=== PATIENT | male | born 1985 | race African-American/Black ===

== ENCOUNTER 2018-05-16 19:57 | Emergency (ER) | payer MEDICARE, OTHER ==
--- NOTE | 2018-05-16 21:00 | ER Document Report ---
ED General - General Chief Complaint: Psych Problem Stated Complaint: PSYCH EVAL Time Seen by Provider: 05/16/18 20:29 TRAVEL OUTSIDE OF THE [place] IN LAST 30 DAYS: No - HPI Notes: Patient is a 32-year-old male that presents to the emergency department for chief complaint of violent behavior. Patient has schizophrenia and lives at a snf out of town. He is in town visiting family for a [facility] home visit. Patient's father states that tonight he had a violent episode. Patient was running up and down the street stating that he loved Hitler. Patient was banging on rachel and yelling violently. He did not make any direct threats that a family member. He has not expressed any suicidal ideation. Patient has been compliant with his home medications. His father states that when he is on home visits it is not infrequent for him to have outbursts. Father states that they did not feel safe at home because of him being so aggressively on the doors. Patient is currently calm and cooperative. He has no complaints. He states that he had an episode but is feeling much better now. Past Medical History: Schizophrenia, diabetes, hypertension, mild MR Past Surgical History: Negative Social History: Denies drugs alcohol and tobacco Family History: Reviewed and noncontributory for presenting illness Allergies: Reviewed, see documented allergy list. REVIEW OF SYSTEMS: CONSTITUTIONAL : No fever No chills No diaphoresis No recent illness EENT: No vision changes No congestion No sore throat CARDIOVASCULAR: No chest pain No palpitations RESPIRATORY: No shortness of breath No cough No difficulty breathing GASTROINTESTINAL: No abdominal pain No nausea No vomiting No diarrhea GENITOURINARY: No dysuria No hematuria No difficulty urinating MUSCULOSKELETAL: No back pain No leg pain No arm pain SKIN: No rashes No lesions LYMPHATIC: No swollen, enlarged glands. NEUROLOGICAL: No lightheadedness No headache No weakness No paresthesias PSYCHIATRIC: No anxiety No depression Violent behavior PHYSICAL EXAMINATION: Vital signs reviewed, nursing noted reviewed. GENERAL: Well-appearing, obese and in no acute distress. HEAD: Atraumatic, normocephalic. EYES: Eyes appear normal, extraocular movements intact, sclera anicteric, conju nctiva are normal. ENT: nares patent, oropharynx clear without exudates. Moist mucous membranes. NECK: Normal range of motion, supple without lymphadenopathy LUNGS: Breath sounds clear to auscultation bilaterally and equal. No wheezes rales or rhonchi. HEART: Regular rate and rhythm without murmurs ABDOMEN: Soft, nontender, normoactive bowel sounds. No rebound, guarding, or rigidity. No masses appreciated. EXTREMITIES: Nontender, good range of motion, no pitting or edema. NEUROLOGICAL: No focal neurological deficits. Moves all extremities spontaneously Motor and sensory grossly intact on exam. PSYCH: Normal mood, normal affect. Cooperative SKIN: Warm, Dry, normal turgor, no rashes or lesions noted on exposed skin - Related Data Allergies/Adverse Reactions: No Known Allergies Allergy (Verified 11/07/14 21:03) Past Medical History - Social History Smoking Status: Unknown if Ever Smoked Chew tobacco use (# tins/day): No Family History: Reviewed & Not Pertinent Patient has suicidal ideation: No Patient has homicidal ideation: No Renal/ Medical History: Denies: Hx Peritoneal Dialysis Psychiatric Medical History: Reports: Hx Anxiety, Hx Bipolar Disorder, Hx Depression, Hx Personality Disorder, Hx Schizophrenia Past Surgical History: Reports: Hx Orthopedic Surgery - knee - Immunizations Hx Diphtheria, Pertussis, Tetanus Vaccination: Yes Physical Exam - Vital signs Vitals: Temp Pulse Resp BP Pulse Ox 98.3 F 74 22 H 128/79 H 97 05/16/18 20:05 05/16/18 20:05 05/16/18 20:05 05/16/18 20:05 05/16/18 20:05 Course - Re-evaluation Re-evalutation: 05/16/18 20:59 Vitals reviewed. Nursing notes reviewed. Patient is resting comfortably and in no acute distress. He is cooperative with myself and staff. He states he is currently feeling much better. He is not requiring any further medication. He did take all of his home evening medications prior to coming into the ER. 05/16/18 21:36 Patient's lab work is unremarkable. He is still calm and in no acute distress. Patient's family does not feel safe with him returning home because of his violent outbursts. He will be monitored in the emergency room tonight and evaluated by psych in the morning. Patient is in agreement with this plan currently. Laboratory 05/16/18 05/16/18 21:00 21:00 WBC 6.4 RBC 4.78 Hgb 13.1 L Hct 39.8 MCV 83 MCH 27.4 MCHC 33.0 RDW 15.4 H Plt Count 150 Seg Neutrophils % 63.0 Lymphocytes % 26.8 Monocytes % 7.2 Eosinophils % 2.3 Basophils % 0.7 Absolute Neutrophils 4.0 Absolute Lymphocytes 1.7 Absolute Monocytes 0.5 Absolute Eosinophils 0.1 Absolute Basophils 0.0 Sodium 141.5 Potassium 4.4 Chloride 104 Carbon Dioxide 29 Anion Gap 9 BUN 10 Creatinine 0.65 Est GFR ( Amer) > 60 Est GFR (Non-Af Amer) > 60 Glucose 100 Calcium 9.6 Total Bilirubin 0.4 Direct Bilirubin 0.4 Neonat Total Bilirubin Not Reportable Neonat Direct Bilirubin Not Reportable Neonat Indirect Bili Not Reportable AST 36 ALT 31 Alkaline Phosphatase 93 Total Protein 7.4 Albumin 4.2 Salicylates < 1.0 L Acetaminophen < 10 L Serum Alcohol < 10 - Vital Signs Vital signs: Temp Pulse Resp BP Pulse Ox 98.3 F 74 22 H 128/79 H 97 05/16/18 20:05 05/16/18 20:05 05/16/18 20:05 05/16/18 20:05 05/16/18 20:05 - Laboratory Result Diagrams: 05/16/18 21:00 05/16/18 21:00 Laboratory results interpreted by me: 05/16/18 05/16/18 21:00 21:00 Hgb 13.1 L RDW 15.4 H Salicylates < 1.0 L Acetaminophen < 10 L - EKG Interpretation by Me Additional EKG results interpreted by me: 05/16/18 21:05 Interpreted by myself 06/26/2001: Normal sinus rhythm, rate 71, normal axis, no ectopy, no ST elevation Discharge - Discharge Clinical Impression: Violent behavior Condition: Stable Disposition: PSYCH HOSP/UNIT
[2018-05-16 21:08] LABS: ABSOLUTE EOSINOPHILS # (AUTO) 0.1 10^3/uL (0.0-0.6); ABSOLUTE LYMPHOCYTES (AUTO) 1.7 10^3/uL (0.5-4.7); ABSOLUTE MONOCYTES (AUTO) 0.5 10^3/uL (0.1-1.4); BASOPHILS % (AUTO) 0.7 % (0-2); EOSINOPHILS % (AUTO) 2.3 % (0-6); HEMATOCRIT 39.8 % (37.9-51.0); HEMOGLOBIN 13.1 g/dL (13.5-17.0); LYMPHOCYTES % (AUTO) 26.8 % (13-45); MEAN CORPUSCULAR HEMOGLOBIN 27.4 pg (27.0-33.4); MEAN CORPUSCULAR VOLUME 83 fl (80-97); MONOCYTES % (AUTO) 7.2 % (3-13); PLATELET COUNT 150 10^3/uL (150-450); RED BLOOD COUNT 4.78 10^6/uL (4.35-5.55); RED CELL DISTRIBUTION WIDTH 15.4 % (11.5-14.0); TOTAL CELLS COUNTED % (AUTO) 100 %; WHITE BLOOD COUNT 6.4 10^3/uL (4.0-10.5)
[2018-05-16 21:25] LABS: ALANINE AMINOTRANSFERASE 31 U/L (21-72); ALBUMIN 4.2 g/dL (3.5-5.0); ALKALINE PHOSPHATASE 93 U/L (38-126); ANION GAP 9 (5-19); ASPARTATE AMINO TRANSFERASE 36 U/L (17-59); BILIRUBIN,DIRECT 0.4 mg/dL (0.0-0.4); BILIRUBIN,TOTAL 0.4 mg/dL (0.2-1.3); BLOOD UREA NITROGEN 10 mg/dL (7-20); CALCIUM 9.6 mg/dL (8.4-10.2); CARBON DIOXIDE 29 mmol/L (22-30); CHLORIDE 104 mmol/L (98-107); GLUCOSE 100 mg/dL (75-110); POTASSIUM 4.4 mmol/L (3.6-5.0); SODIUM 141.5 mmol/L (137-145); TOTAL PROTEIN 7.4 g/dL (6.3-8.2)
[2018-05-16 21:26] LABS: ACETAMINOPHEN < 10 ug/mL (10-30); ALCOHOL < 10 mg/dL (NONE DETECTED); SALICYLATE < 1.0 mg/dL (2.0-20.0)
[2018-05-16] MEDS ORDERED: IBUPROFEN 600 MG TABLET PO PRN (23:36)
--- NOTE | 2018-05-17 07:36 | EKG REPORT ---
SEVERITY:- NORMAL ECG - SINUS RHYTHM : Confirmed by: Cedrick Alvarado MD 17-May-2018 07:36:07
[2018-05-17] MEDS ORDERED: SIMVASTATIN 10 MG TABLET PO SCH (10:00)
[2018-05-17] MEDS ORDERED: (PENDING PHARMACY ID) (Simvastatin [Simvastatin] 20 MG) PO SCH (10:00)
[2018-05-17] MEDS: HALOPERIDOL 5 MG TABLET PO SCH ×2 (11:53→18:20)
[2018-05-17] MEDS: PROPRANOLOL HCL 10 MG TABLET PO SCH ×2 (11:53→18:21)
--- NOTE | 2018-05-17 17:02 | PSYCHOLOGICAL NOTE ---
Psych Note - Psych Note Date seen by psych provider: 05/17/18 Time seen by psych provider: 07:40 Psych Note: Reason for Visit: Violent Behavior Contact Permission: Andres Ku [phone] Left message [phone] Patient is a 32 yo male presenting to the ED after a behavioral episode at home in which he was yelling and banging on doors. Pt was previously seen in the ED x5 in 2015 for OD, SI and poorly managed Schizophrenia. Chart review shows that patient's visits ceased after APS call made due to parent/guardian abandonment of patient at [facility]. Today, per pt. he was remembering a fight with his brother from the past and left an angry VM on his brothers phone about being like Hitler and killing all parts manager. He reports that he was thinking about a time in which law enforcement were yelling at him and not treating him with respect. He reports not being able to calm himself and banging on doors and yelling. Per pt. he was unable to calm himself so his father brought him to the ED to help him calm down. "I need respite to help me calm down". Pt. shares that he has been living in a alf for two years and 1x/mo has behavioral episodes at the alf. There, he utilizes meditation and talking with [place] the supervisor [employer]. At home, where he has been the last two days for the holidays, pt identifies his biological mother in [place] and foster mom in [place] as his primary supports. Pt reports "good" relationship with his father who he is visiting. He denies medication non-compliance while home and endorses benefit with no sx breakthrough (SI, HI, and AV/H) on his alf medications: Haldol 10mg BID, [id number] QHS, Propanolol 10 TID. Patient's father Mr. Ku reports that pt was escalating last night (yelling and banging on his bedroom door) and that he was unable to calm him. He believes this was a result pt viewing and becoming fixated on material he was viewing about Hitler on the internet at the [employer]. Mr. Ku asserts that he is a MH professional and that pt was beyond his capabilities but that "in my professional and personal opinion he needs to be observed at least 24 hours before discharge". Of note, at the time of this conversation pt had been in the ED calm and cooperative for nearly 18 hours. Requested that father at bare minimum, visit patient today to determine if he was at baseline. He agreed to do so. Then, Mr. Ku complained that he was unable to manage pt behaviors with his recent heart attack/poor health/reiterated that it was his professional opinion that pt be detained longer for observation and then threatened to delay his visit to [facility] until 05/18/18. Explained to Mr. Ku that pt would be psychiatrically cleared as he was already stable and that respite would need to be discussed with ED physician. Patient was alert and oriented x4. Mood was euthymic with congruent affect. Patient was woken from deep sleep but proceeded to sit up and engage fully in evaluation. Patient denies SI, HI, and AV/H, does not appear to be responding to internal stimuli and no delusions were noted. Conversational speech was WNL for rate, tone, and prosody and eye contact was well maintained. Thought processes were linear, organized, and rational. Concentration and attention were within normal limits. Intellectual abilities were estimated to be within the average range and insight, judgment, and impulse control were good. Diagnosis: 298.9 (F29) Unspecified Schizophrenia Spectrum and Other Psychotic Disorder, by hx 299 Autism Spectrum Disorder, by hx No medication recommendations at this time Impression/Plan: Recommendation is to rescind IVC for risk of harm to self and others AEB patient has been calm and cooperative for the duration of his stay in the ED. He denies SI, HI, and AV/H, does not appear to be responding to internal stimuli and no delusions were noted. Patient is a 32 yo male with Schizophrenia and ASD diagnoses who had a behavioral episode yesterday in which he was yelling and banging on doors. Patient normally resides in a alf [facility] and reports medication compliance and sx management with behavioral episodes approximately 1/mo. He identifies meditation, talking with supports at alf, and with mother/foster mother as calming. Pt is home for the holiday visiting his father who refuses to visit or pick him up for discharge. Father insists on 24 hour observation despite pt disposition and readiness for discharge and alludes to not being able to manage patient at home due to his own health i.e. a recent heart attack. Of note, [facility] had to initiate APS involvement in 2014 because father who is guardian was not returning phone calls and refusing to take patient home. Consulted Dr. Treviño in the care and treatment of this patient and ED physician who stated that he would make an APS report based on his own conversation with patient's father.
--- NOTE | 2018-05-17 17:45 | ER Document Report ---
Doctor's Note Notes: 32-year-old male with schizophrenia who was brought by his father for labile mood. On evaluation today the young man is pleasant appropriate and interactive. He has been evaluated by mental health professionals who deemed him appropriate for outpatient treatment at this time and continued management. They had discussed this with the patient's father who states that he is "a mental health professional as well as father" he states that he has "a PhD in education" he states that he believes this patient should undergo a 24-hour observation. I noted to the father that Onur had in fact been here 20 hours at the time of our phone call, he stated that he is wore out, will not be evaluating or picking up his son today, the soonest he will be here is 8 AM tomorrow approximately 30 hours from now. I noted that I am concerned about a possible abandonment issue. It is noteworthy also that this patient in the past had been abandoned by his father at the hospital as a result had cases filed with Adult Protective Services. He currently lives full-time in a halfway. The father had willingly been taken him out of the halfway for the holiday prior to bringing him to the emergency department. I attempted to ask the father if he would perhaps consider returning the patient to the halfway as this seemed to be best for him however he hung up the phone. I spoke to Onur about this and that his father would come tomorrow around 8 AM he said that was no problem, he will wait. At this time I do believe this young man is safe for discharge home with expected return to his halfway. He is to undergo a brief period of waiting in the emergency department until that time. Discharge - Discharge Clinical Impression: Violent behavior Schizophrenia Qualifiers: Schizophrenia type: unspecified Qualified Code(s): F20.9 - Schizophrenia, unspecified Condition: Stable Disposition: HOME, SELF-CARE Additional Instructions: You were seen in the emergency department for your labile mood. He had evaluation including an observation period As well as blood test. You should return to your halfway when able. Try to control your emotions. Avoid scary movies, these seem to be a trigger for you. Return to the emergency room for worsening violent outburst, anger, or concerns of your health.
[2018-05-17 21:41] LABS: APPEARANCE,URINE CLEAR; BILIRUBIN,URINE NEGATIVE (NEGATIVE); COLOR,URINE YELLOW; GLUCOSE, URINE NEGATIVE (NEGATIVE); KETONES,URINE NEGATIVE (NEGATIVE); LEUKOCYTE ESTERASE,URINE NEGATIVE (NEGATIVE); NITRITE,URINE NEGATIVE (NEGATIVE); PROTEIN,URINE NEGATIVE (NEGATIVE); URINE SPECIFIC GRAVITY 1.016; UROBILINOGEN,URINE NEGATIVE mg/dL (<2.0)
[2018-05-17 21:53] LABS: URINE AMPHETAMINES SCREEN NEGATIVE; URINE BENZODIAZEPINES SCREEN NEGATIVE; URINE COCAINE SCREEN NEGATIVE; URINE METHADONE SCREEN NEGATIVE; URINE PHENCYCLIDINE SCREEN NEGATIVE
[2018-05-17 21:56] LABS: URINE BARBITURATES SCREEN NEGATIVE
[2018-05-17 21:58] LABS: URINE MARIJUANA (THC) SCREEN NEGATIVE
[2018-05-17] MEDS ORDERED: OLANZAPINE 5 MG TABLET PO SCH (22:00)
[2018-05-18 07:53] VITALS: BP 130/75
[2018-05-18] MEDS: HALOPERIDOL 5 MG TABLET PO SCH (09:23)
== END 2018-05-18 09:41 | disposition home or self-care (01) ==
LOC: ER 19:57
DX: F20.9 Schizophrenia, unspecified (principal); R45.6 Violent behavior; Z79.899 Other long term (current) drug therapy; E11.9 Type 2 diabetes mellitus without complications; I10 Essential (primary) hypertension
CPT/HCPCS: 93005; 99285; 36415; 80307 ×4; 85025; 80053; 81001; 93010; A9270 ×4; J3490